=== PATIENT | male | born 1975 | race African-American/Black ===

== ENCOUNTER 2018-02-13 20:00 | Emergency (ER) | payer SELFPAY ==
[2018-02-13] MEDS ORDERED: ONDANSETRON 4 MG TAB.RAPDIS PO ONE (21:02)
--- NOTE | 2018-02-13 21:05 | ER Document Report ---
ED Medical Screen (RME) - General Chief Complaint: Near Syncope Stated Complaint: SYNCOPE Time Seen by Provider: 02/13/18 21:01 Mode of Arrival: Ambulatory Information source: Patient Notes: 42-year-old male presents to ED for nausea or vomiting and cannot keep anything down. He states he has been nausea and vomiting 2 days 3 or 4 times a day. He states he had a near syncopal episode episode earlier but it does not feel that way at this time. He states he has upper abdominal pain for the last 3 or 4 days. He states he smokes a pack a day and drinks a 6 pack a day no drugs. He states he has not had any alcohol since Saturday. Patient is alert and oriented, speaks in full sentences. She walks with a even steady gait. I have greeted and performed a rapid initial assessment of this patient. A comprehensive ED assessment and evaluation of the patient, analysis of test results and completion of medical decision making process will be conducted by an additional ED providers. TRAVEL OUTSIDE OF THE [place] IN LAST 30 DAYS: No - Related Data Allergies/Adverse Reactions: No Known Allergies Allergy (Unverified 10/15/11 13:04) Past Medical History Past Surgical History: Reports: Hx Orthopedic Surgery - rt shoulder - Immunizations Hx Diphtheria, Pertussis, Tetanus Vaccination: Yes Physical Exam - Vital signs Vitals: Temp Pulse Resp BP Pulse Ox 98.9 F 79 12 124/76 97 02/13/18 20:21 02/13/18 20:21 02/13/18 20:21 02/13/18 20:21 02/13/18 20:21 Course - Vital Signs Vital signs: Temp Pulse Resp BP Pulse Ox 98.9 F 79 12 124/76 97 02/13/18 20:21 02/13/18 20:21 02/13/18 20:21 02/13/18 20:21 02/13/18 20:21 Doctor's Discharge - Discharge Referrals: LOCAL,NO [Primary Care Provider] - Follow up as needed
[2018-02-13] MEDS ORDERED: NORMAL SALINE 1000 ML 1,000 ML IV ONE ×2 (22:14→23:02)
[2018-02-13 22:16] LABS: APPEARANCE,URINE SLIGHTLY-CLOUDY; BILIRUBIN,URINE SMALL (NEGATIVE); COLOR,URINE AMBER; GLUCOSE, URINE NEGATIVE (NEGATIVE); KETONES,URINE 20 mg/dL (NEGATIVE); LEUKOCYTE ESTERASE,URINE TRACE (NEGATIVE); NITRITE,URINE NEGATIVE (NEGATIVE); PROTEIN,URINE 100 mg/dL (NEGATIVE); URINE SPECIFIC GRAVITY 1.029
[2018-02-13 22:21] LABS: ABSOLUTE LYMPHOCYTES (AUTO) 0.7 10^3/uL (0.5-4.7); ABSOLUTE MONOCYTES (AUTO) 0.5 10^3/uL (0.1-1.4); ABSOLUTE NEUT (AUTO) 4.7 10^3/uL (1.7-8.2); BASOPHILS % (AUTO) 0.2 % (0-2); HEMATOCRIT 45.5 % (37.9-51.0); HEMOGLOBIN 15.5 g/dL (13.5-17.0); LYMPHOCYTES % (AUTO) 11.6 % (13-45); MEAN CORPUSCULAR HEMOGLOBIN 31.2 pg (27.0-33.4); MEAN CORPUSCULAR VOLUME 92 fl (80-97); MONOCYTES % (AUTO) 8.5 % (3-13); PLATELET COUNT 287 10^3/uL (150-450); RED BLOOD COUNT 4.97 10^6/uL (4.35-5.55); RED CELL DISTRIBUTION WIDTH 13.8 % (11.5-14.0); SEGMENTED NEUTROPHILS % (AUTO) 79.7 % (42-78); TOTAL CELLS COUNTED % (AUTO) 100 %; WHITE BLOOD COUNT 5.9 10^3/uL (4.0-10.5)
[2018-02-13] MEDS ORDERED: FAMOTIDINE INJ/PF 20 MG/2 ML SDV IV ONE (22:21)
--- NOTE | 2018-02-13 22:21 | ER Document Report ---
ED General - General Chief Complaint: Near Syncope Stated Complaint: SYNCOPE Time Seen by Provider: 02/13/18 21:01 Mode of Arrival: Ambulatory Information source: Patient Notes: 42-year-old male with no reported past medical history presents with complaint of nausea, vomiting and lightheadedness. 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 He states since that time he has vomited every meal. He states today while on his way to the emergency department he stopped by a gas station and walked into the cooler because he was sweating profusely, at that time patient began to feel lightheaded. He denies any loss of consciousness. Has not been able to keep down any food or liquids since yesterday. He denies sick contacts, recent travel, recent antibiotic use. Denies prior similar symptoms. Patient does admit to tobacco use, occasional alcohol use and marijuana use. Patient is also complaining of mild epigastric pain. Patient's last bowel movement was yesterday. He denies his stool or emesis. TRAVEL OUTSIDE OF THE [place] IN LAST 30 DAYS: No - HPI Onset: Yesterday Onset/Duration: Sudden, Persistent Quality of pain: Achy Associated symptoms: Nausea, Vomiting. denies: Chest pain, Diarrhea, Fever, Shortness of breath Exacerbated by: Food Relieved by: Denies Similar symptoms previously: No Recently seen / treated by doctor: No - Related Data Allergies/Adverse Reactions: No Known Allergies Allergy (Unverified 10/15/11 13:04) Past Medical History - General Information source: Patient - Social History Smoking Status: Current Every Day Smoker Smoking Education Provided: Yes - Patient counselled regarding cessation for 4 minutes Frequency of alcohol use: Heavy Drug Abuse: Marijuana Lives with: Family Family History: Reviewed & Not Pertinent Patient has suicidal ideation: No Patient has homicidal ideation: No - Medical History Medical History: Negative Renal/ Medical History: Denies: Hx Peritoneal Dialysis Past Surgical History: Reports: Hx Orthopedic Surgery - rt shoulder - Immunizations Hx Diphtheria, Pertussis, Tetanus Vaccination: Yes Review of Systems - Review of Systems Notes: REVIEW OF SYSTEMS: CONSTITUTIONAL : Denies fever, chills, or sweats. Denies recent illness. Denies weight loss, recent hospitalizations. EENT: Denies visula changes, eye pain. Denies nasal or sinus congestion or discharge. Denies sore throat, oral lesions, difficulty swallowing. CARDIOVASCULAR: Denies chest pain. Denies palpitations or racing or irregular heart beat. Denies lower extremity edema. RESPIRATORY: Denies cough, cold, or chest congestion. Denies shortness of breath, difficulty breathing, or wheezing. GASTROINTESTINAL: Denies abdominal distention. Denies diarrhea. Denies blood in vomitus, stools, or per rectum. Denies black, tarry stools. Denies constipation. GENITOURINARY: Denies difficulty urinating, painful urination, burning, frequency, blood in urine, or vaginal discharge. MUSCULOSKELETAL: Denies back or neck pain or stiffness. Denies joint pain or swelling. SKIN: Denies rash, lesions or sores. HEMATOLOGIC : Denies easy bruising or bleeding. LYMPHATIC: Denies swollen, enlarged glands. NEUROLOGICAL: Denies confusion or altered mental status. Denies passing out or loss of consciousness. Denies headache. Denies weakness or paralysis or loss of use of either side. Denies problems with gait or speech. Denies sensory loss, numbness, or tingling. Denies seizures. PSYCHIATRIC: Denies anxiety or stress. Denies depression, suicidal ideation, or homicidal ideation. Physical Exam - Vital signs Vitals: Temp Pulse Resp BP Pulse Ox 98.9 F 79 12 124/76 97 02/13/18 20:21 02/13/18 20:21 02/13/18 20:21 02/13/18 20:21 02/13/18 20:21 Interpretation: Normal. No: Hypertensive, Tachycardic, Febrile - Notes Notes: PHYSICAL EXAMINATION: GENERAL: Well-appearing, well-nourished and in no acute distress. HEAD: Atraumatic, normocephalic. EYES: Pupils equal round and reactive to light, extraocular movements intact, sclera anicteric, conjunctiva are normal. ENT: Nares patent, oropharynx clear without exudates. Dry mucous membranes. NECK: Normal range of motion, supple without lymphadenopathy LUNGS: Breath sounds clear to auscultation bilaterally and equal. No wheezes rales or rhonchi. HEART: Regular rate and rhythm without murmurs ABDOMEN: Soft, nontender, nondistended abdomen. No guarding, no rebound. No masses appreciated. Musculoskeletal: Normal range of motion, no pitting or edema. No cyanosis. NEUROLOGICAL: Cranial nerves grossly intact. Normal speech, normal gait. Normal sensory, motor exams PSYCH: Normal mood, normal affect. SKIN: Warm, Dry, normal turgor, no rashes or lesions noted. Course - Re-evaluation Re-evalutation: Laboratory 02/13/18 02/13/18 02/13/18 22:01 22:10 22:10 WBC 5.9 RBC 4.97 Hgb 15.5 Hct 45.5 MCV 92 MCH 31.2 MCHC 34.0 RDW 13.8 Plt Count 287 Seg Neutrophils % 79.7 H Lymphocytes % 11.6 L Monocytes % 8.5 Eosinophils % 0.0 Basophils % 0.2 Absolute Neutrophils 4.7 Absolute Lymphocytes 0.7 Absolute Monocytes 0.5 Absolute Eosinophils 0.0 Absolute Basophils 0.0 Sodium 137.3 Potassium 4.1 Chloride 92 L Carbon Dioxide 33 H Anion Gap 12 BUN 9 Creatinine 0.80 Est GFR ( Amer) > 60 Est GFR (Non-Af Amer) > 60 Glucose 130 H Calcium 10.7 H Total Bilirubin 0.9 Direct Bilirubin 0.4 Neonat Total Bilirubin Not Reportable Neonat Direct Bilirubin Not Reportable Neonat Indirect Bili Not Reportable AST 92 H ALT 111 H Alkaline Phosphatase 80 Creatine Kinase 235 H CK-MB (CK-2) Troponin I Total Protein 8.4 H Albumin 4.8 Lipase Urine Color KAYLIE Urine Appearance SLIGHTLY-CLOUDY Urine pH 5.0 Ur Specific [place] 1.029 Urine Protein 100 H Urine Glucose (UA) NEGATIVE Urine Ketones 20 H Urine Blood NEGATIVE Urine Nitrite NEGATIVE Urine Bilirubin SMALL H Urine Urobilinogen 4.0 H Ur Leukocyte Esterase TRACE H Urine WBC (Auto) 4 Urine RBC (Auto) 1 U Hyaline Cast (Auto) 3 Urine Bacteria (Auto) TRACE Squamous Epi Cells Auto <1 Urine Mucus (Auto) MANY Urine Ascorbic Acid NEGATIVE 02/13/18 02/13/18 22:10 22:10 WBC RBC Hgb Hct MCV MCH MCHC RDW Plt Count Seg Neutrophils % Lymphocytes % Monocytes % Eosinophils % Basophils % Absolute Neutrophils Absolute Lymphocytes Absolute Monocytes Absolute Eosinophils Absolute Basophils Sodium Potassium Chloride Carbon Dioxide Anion Gap BUN Creatinine Est GFR ( Amer) Est GFR (Non-Af Amer) Glucose Calcium Total Bilirubin Direct Bilirubin Neonat Total Bilirubin Neonat Direct Bilirubin Neonat Indirect Bili AST ALT Alkaline Phosphatase Creatine Kinase CK-MB (CK-2) 1.12 Troponin I < 0.012 Total Protein Albumin Lipase 169.3 Urine Color Urine Appearance Urine pH Ur Specific [place] Urine Protein Urine Glucose (UA) Urine Ketones Urine Blood Urine Nitrite Urine Bilirubin Urine Urobilinogen Ur Leukocyte Esterase Urine WBC (Auto) Urine RBC (Auto) U Hyaline Cast (Auto) Urine Bacteria (Auto) Squamous Epi Cells Auto Urine Mucus (Auto) Urine Ascorbic Acid 02/13/18 22:20 42-year-old male with no reported past medical history presents with complaint of nausea, vomiting and lightheadedness. 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 He states since that time he has vomited every meal. He states today while on his way to the emergency department he stopped by a gas station and walked into the cooler because he was sweating profusely, at that time patient began to feel lightheaded. He denies any loss of consciousness. Has not been able to keep down any food or liquids since yesterday. He denies sick contacts, recent travel, recent antibiotic use. Denies prior similar symptoms. Patient does admit to tobacco use, occasional alcohol use and marijuana use. Patient is also complaining of mild epigastric pain. Patient's last bowel movement was yesterday. He denies his stool or emesis. Patient was seen by myself upon arrival. Vital signs were reviewed. Patient is afebrile, normotensive and not hypoxic. Patient does not appear toxic or dehydrated. They are in no acute distress. Previous medical records and nursing notes reviewed. CBC is without leukocytosis or anemia. BMP shows no electrolyte abnormalities. LFTs are mildly elevated likely secondary to patient's heavy alcohol use. Patient is within normal limits, cardiac enzymes are within normal limits. Urinalysis is significant for ketones consistent with dehydration. On reevaluation patient states he is feeling better. He has a bag of Ferraro's sitting next to his bed. I did advise him that he should probably not eat Ferraro's at this point since he has vomited over 10 times today. Patient was encouraged to drink water and Gatorade while working construction. Patient provided the opportunity to ask questions, and express concerns. Discharge instructions discussed. Patient is agreeable with discharge home. Return indications explained and discussed with the patient who displays understanding. Patient encouraged to return to the emergency department immediately with any concerns. 02/13/18 23:38 02/14/18 03:57 Orthostatic vital signs were within normal limits. - Vital Signs Vital signs: Temp Pulse Resp BP Pulse Ox 98.9 F 71 12 118/69 97 02/13/18 20:21 02/13/18 23:57 02/13/18 20:21 02/13/18 23:57 02/13/18 20:21 - Laboratory Result Diagrams: 02/13/18 22:10 02/13/18 22:10 Laboratory results interpreted by me: 02/13/18 02/13/18 02/13/18 22:01 22:10 22:10 Seg Neutrophils % 79.7 H Lymphocytes % 11.6 L Chloride 92 L Carbon Dioxide 33 H Glucose 130 H Calcium 10.7 H AST 92 H ALT 111 H Creatine Kinase 235 H Total Protein 8.4 H Urine Protein 100 H Urine Ketones 20 H Urine Bilirubin SMALL H Urine Urobilinogen 4.0 H Ur Leukocyte Esterase TRACE H - EKG Interpretation by Me EKG shows normal: Sinus rhythm Rate: Normal Rhythm: NSR When compared to previous EKG there are: Previous EKG unavailable Discharge - Discharge Clinical Impression: Dehydration, Near syncope Nausea & vomiting Qualifiers: Vomiting type: unspecified Vomiting Intractability: non-intractable Qualified Code(s): R11.2 - Nausea with vomiting, unspecified Condition: Good Disposition: HOME, SELF-CARE Instructions: Antinausea Medication ([facility]), Dehydration ([facility]), Nausea or Vomiting, Nonspecific ([facility]), Near Syncopal Episode ([facility]) Additional Instructions: Follow up with your physician tomorrow for further care or return to the ED IMMEDIATELY if symptoms worsen or new concerns occur. If you cannot afford to follow up with your primary care physician a list of low cost clinics have been provided at the end of your discharge papers as well. 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 Avoid drinks with caffeine. Prescriptions: Ondansetron [Zofran Odt 4 mg Tablet] 1 - 2 tab PO Q4H PRN #15 tab.rapdis PRN Reason: For Nausea/Vomiting Forms: Smoking Cessation Education, Return to Work Referrals: LOCALMD,NO [NO LOCAL MD] - Follow up as needed
[2018-02-13 22:38] LABS: ALANINE AMINOTRANSFERASE 111 U/L (21-72); ALBUMIN 4.8 g/dL (3.5-5.0); ALKALINE PHOSPHATASE 80 U/L (38-126); ANION GAP 12 (5-19); ASPARTATE AMINO TRANSFERASE 92 U/L (17-59); BILIRUBIN,DIRECT 0.4 mg/dL (0.0-0.4); BILIRUBIN,TOTAL 0.9 mg/dL (0.2-1.3); BLOOD UREA NITROGEN 9 mg/dL (7-20); CALCIUM 10.7 mg/dL (8.4-10.2); CARBON DIOXIDE 33 mmol/L (22-30); CHLORIDE 92 mmol/L (98-107); CREATINE KINASE 235 U/L (55-170); GLUCOSE 130 mg/dL (75-110); POTASSIUM 4.1 mmol/L (3.6-5.0); SODIUM 137.3 mmol/L (137-145); TOTAL PROTEIN 8.4 g/dL (6.3-8.2)
[2018-02-13 22:48] LABS: CREATINE KINASE MB 1.12 ng/mL (<4.55)
[2018-02-13 22:51] LABS: TROPONIN I < 0.012 ng/mL
[2018-02-13 23:58] VITALS: BP 118/69
--- NOTE | 2018-02-14 08:40 | EKG REPORT ---
SEVERITY:- NORMAL ECG - SINUS RHYTHM ST ELEV, PROBABLE NORMAL EARLY REPOL PATTERN : Confirmed by: Andrew Carbajal 14-Feb-2018 08:39:41
== END 2018-02-14 00:25 | disposition home or self-care (01) ==
LOC: ER 20:00
DX: E86.0 Dehydration (principal); R55 Syncope and collapse; R11.2 Nausea with vomiting, unspecified; R10.13 Epigastric pain; R79.89 Other specified abnormal findings of blood chemistry; F17.200 Nicotine dependence, unspecified, uncomplicated; Z71.6 Tobacco abuse counseling; F12.10 Cannabis abuse, uncomplicated
CPT/HCPCS: 93005; 99406; 99284; 96361; 96374; 36415; 82553; 82550; 83690; 85025; 80053; 81001; 84484; 93010; S0119; J7030; S0028